=== PATIENT | male | born 1960 | race Caucasian/White ===

== ENCOUNTER 2022-07-27 10:46 | Emergency (ER) | payer OTHER ==
--- NOTE | 2022-07-27 11:44 | XRAY Report ---
PROCEDURE: Ribs w/PA Chest RT INDICATIONS: fall with right ribs pain TECHNIQUE: 2 views of the right ribs were acquired, along with a single view chest. COMPARISON: None FINDINGS: Surgical changes and devices: None. Bones and chest wall: Nondisplaced posterior right 11th rib fracture noted. No pneumothorax. . Lungs and pleura: No pleural effusions or pneumothorax. Lungs appear clear. Mediastinum: Mediastinal contours appear normal. Heart size is normal. IMPRESSION: Nondisplaced right 11th rib fracture. No pneumothorax. Reviewed by: Pete Lamar MD on 07/27/2022 10:43 AM [facility] Approved by: Pete Lamar MD on 07/27/2022 10:43 AM [facility] Station ID: [id number]
--- NOTE | 2022-07-27 13:31 | ED Physician Documentation ---
PD HPI Fall - Stated complaint Stated Complaint: R RIBS PX - Chief complaint Chief Complaint: Trauma Ch/Bk - History obtained from History obtained from: Patient - History of Present Illness Fall distance: Standing position (slipped in shower and landed right lateral ribs onto edge. Pain in the area. Was getting better then felt a pop and worse pain suddenly with just some trunk movement last night, and much increased pain now.) Where injury occurred: Home Timing - onset: How many weeks ago (2) Injury(ies) location: Chest (right posterolateral mid ribs.). No: Head, Neck Quality of pain: Pain, Sharp Associated symptoms: No: Neck pain, Weakness Worsens with: Movement, Palpation, Other (deep breathing) Contributing factors: No: Anticoagulated Similar symptoms before: Has not had sx before Recently seen: Not recently seen Review of Systems Constitutional: denies: Fever, Chills Nose: denies: Rhinorrhea / runny nose, Congestion Throat: denies: Sore throat Cardiac: reports: Chest pain / pressure. denies: Palpitations, Pedal edema, Calf pain Respiratory: denies: Dyspnea, Cough, Wheezing Skin: denies: Abrasion (s), Laceration (s) PD PAST MEDICAL HISTORY - Past Medical History Cardiovascular: None Respiratory: None Endocrine/Autoimmune: None - Present Medications Home Medications: Ambulatory Orders Medication Instructions Recorded Confirmed HYDROcod/ACETAM 5/325 [[place] 5/325] 1 ea PO Q6H PRN #14 tablet 07/27/22 Lidocaine Patch 5% [Lidoderm Patch] 1 patch TOP DAILY PRN #10 patch 07/27/22 - Allergies Allergies/Adverse Reactions: Allergies Allergy/AdvReac Type Severity Reaction Status Date / Time No Known Drug Allergies Allergy Verified 07/27/22 11:04 PD ED PE NORMAL - Vitals Vital signs reviewed: Yes - General General: Alert and oriented X 3, Well developed/nourished, Other (appears uncomfortable with trunk movement and is splinting breathing moderately. ) - HEENT HEENT: Atraumatic - Neck Neck: Supple, no meningeal sign, No bony TTP - Cardiac Cardiac: RRR, No murmur - Respiratory Respiratory: No respiratory distress, Clear bilaterally, Other (right posterolateral ribs with focal tenderness but no crepitance at approx 6th rib. ) - Abdomen Abdomen: Soft, Non tender - Derm Derm: Normal color, Warm and dry - Extremities Extremities: Normal ROM s pain - Neuro Neuro: Alert and oriented X 3, No motor deficit, No sensory deficit, Normal speech Results - Vitals Vitals: Oxygen O2 Source Room air - Rads (name of study) ribs with chest Radiology: Prelim report reviewed (nondipslaced right 6th rib fracture. no PTX.), See rad report PD MEDICAL DECISION MAKING - ED course Complexity details: reviewed results, considered differential, d/w patient Departure - Departure Disposition: 01 Home, Self Care Clinical Impression: Rib fracture Qualifiers: Encounter type: initial encounter Rib fracture type: single rib Fracture type: closed Laterality: right Qualified Code(s): S22.31XA - Fracture of one rib, right side, initial encounter for closed fracture Condition: Stable Record reviewed to determine appropriate education?: Yes Instructions: ED Fx Rib Follow-Up: Johnna Miller PA [Primary Care Provider] - Prescriptions: Lidocaine Patch 5% [Lidoderm Patch] 1 patch TOP DAILY PRN #10 patch PRN Reason: pain HYDROcod/ACETAM 5/325 [[place] 5/325] 1 ea PO Q6H PRN #14 tablet PRN Reason: Pain Comments: You do have a single broken rib on x-ray. No signs of injury around the lung such as fluid around the lung or collapsed lung. I presume it was starting to heal and then displaced briefly. Its pretty much in place right now. Activity as tolerated. This should continue to heal and typically takes about 4 to 5 weeks. Commonly will be healed enough with initial bone callus to not have clicking and popping of it anymore after about 2 weeks. Continue with some anti-inflammatory such as ibuprofen 3 times daily. To that add Tylenol every 4-6 hours if needed for pain or hydrocodone/acetaminophen if needed for worse pain. You could also try topical treatments to the area and they may have some benefit such as lidocaine patch etc. I transmitted your prescriptions to [facility] in [place]. I am prescribing a short course of narcotic pain medication for you. These are potentially dangerous and addictive medications that should be used carefully. These medications may constipate you. Take an [id number] stool softener such as docusate twice daily with plenty of water while taking these medications. If you go 24 hours without a bowel movement, take [id number] MiraLAX, per package instructions. Do not drink or drive while taking these medications. If you received narcotic or sedating medications while in the emergency department do not drive for 24 hours. Store this medication in a safe, secure place and out of reach of children. It is a violation of federal law to give or sell this medication to another person or to use in a manner other than prescribed. The ED will not refill narcotic prescriptions, including prescriptions lost or stolen. You can dispose of unwanted medications at the [facility]'s office or at several pharmacies such as [facility]. Discharge Date/Time: 07/27/22 14:30
[2022-07-27] MEDS ORDERED: LIDOCAINE PATCH 5% TOP STA (14:14)
[2022-07-27] MEDS ORDERED: ACETAMINOPHEN 325 MG TABLET PO STA (14:14)
[2022-07-27 14:28] VITALS: BP 130/80
== END 2022-07-27 14:30 | disposition home or self-care (01) ==
LOC: ED 10:46
DX: S22.31XA Fracture of one rib, right side, initial encounter for closed fracture (principal); W18.2XXA Fall in (into) shower or empty bathtub, initial encounter; Y93.E1 Activity, personal bathing and showering; Y92.002 Bathroom of unspecified non-institutional (private) residence as the place of occurrence of the external cause
CPT/HCPCS: 71101; 99283; 99284; A9270

== ENCOUNTER 2024-02-27 13:00 | Outpatient (CLI) | payer MEDICARE, BC ==
--- NOTE | 2024-02-27 14:09 | XRAY Report ---
PROCEDURE: Shoulder 2+V BL INDICATIONS: BILATERAL SHOULDER PAIN TECHNIQUE: 3 views of the shoulder were acquired. COMPARISON: None. FINDINGS: Left: Mild glenohumeral and acromioclavicular degenerative changes. Moderate calcific tendinopathy. No acut e displaced fracture or dislocation. Right: Moderate reticular and glenohumeral degenerative changes. No acute fracture or dislocation. Possible mild calcific tendinopathy. IMPRESSION: Degenerative changes are greater on the right. Calcific tendinopathy appears greater on the left. If there is high concern for further derangement, consider MRI evaluation. . No acute radiographic abnor mality identified Reviewed by: Jose Gama MD on 02/27/2024 2:08 PM PDT Approved by: Jose Gama MD on 02/27/2024 2:08 PM PDT Station ID: [id number]
== END 2024-02-27 13:01 | disposition home or self-care (01) ==
LOC: DI 13:00
PROVIDERS: ATTEND Physician Assistant
DX: M19.011 Primary osteoarthritis, right shoulder (principal); M19.012 Primary osteoarthritis, left shoulder; M25.812 Other specified joint disorders, left shoulder